=== PATIENT | female | born 1985 | race Caucasian/White ===

== ENCOUNTER 2019-03-27 20:19 | Emergency (ER) | payer OTHER ==
--- NOTE | 2019-03-27 21:31 | EDM.PDOC ---
ED HPI GENERAL MEDICAL PROBLEM - General Chief Complaint: Chest Pain Stated Complaint: CHEST PAIN LEFT SIDE HAD BABY ON FRIDAY Time Seen by Provider: 03/27/19 21:04 Source of Information: Reports: Patient, RN Notes Reviewed History Limitations: Reports: No Limitations - History of Present Illness INITIAL COMMENTS - FREE TEXT/NARRATIVE: Patient is a 34-year-old female who presents to the ED for the evaluation of left-sided chest pain. The patient notes that she did just give to a healthy baby girl this last Friday. So she would be 6 days from her . The patient notes last night however she developed some sharp chest pain that made her awaken from sleep. These have been intermittent, and she states that when she sits upright, the pain feels better. She notes she does get a little bit of shortness of breath with the pain episodes. She notes that the pain does worsen when she takes a deep breath as well. She would describe the pain as a sharp, stabbing pain in nature. She denies any nausea/vomiting/ diarrhea. The patient notes that she is breast-feeding, but she has not noticed any redness, swelling, or tenderness to the breast tissue itself, she states that the pain feels deeper than her breast tissue. She notes that she has been prescribed 800 mg ibuprofen every 8 hours for pain relief due to the , but states she has not been taking this every 8 hours, she is only doing it as needed. Patient further denies any sort of recent cold-like symptoms, or change in bras that she may have had. 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 Denies: Cough Cardiovascular: Reports: Chest Pain (Left chest pain). Denies: Dyspnea on Exertion, Lightheadedness, Palpitations, PND Endocrine: Reports: No Symptoms GI/Abdominal: Reports: No Symptoms : Reports: No Symptoms Musculoskeletal: Reports: No Symptoms Skin: Reports: No Symptoms Neurological: Reports: No Symptoms Psychiatric: Reports: No Symptoms Hematologic/Lymphatic: Reports: No Symptoms Immunologic: Reports: No Symptoms ED EXAM, GENERAL - Physical Exam Exam: See Below Exam Limited By: No Limitations General Appearance: Alert, WD/WN, No Apparent Distress Throat/Mouth: Normal Inspection, Normal Lips, Normal Teeth, Normal Gums, Normal Oropharynx, Normal Voice, No Airway Compromise Head: Atraumatic, Normocephalic Neck: Normal Inspection Respiratory/Chest: No Respiratory Distress, Lungs Clear, Normal Breath Sounds, No Accessory Muscle Use, Other (Palpation of the Left chest elicits reproducible pain over the 3-4th rib.) Cardiovascular: Normal Peripheral Pulses, Regular Rate, Rhythm, No Edema, No Murmur (Female) Exam: Other (Breast tissue appears normal on visual inspection, there is no redness, swelling or open sores noted no signs of mastitis or cellulitis.) Extremities: Normal Inspection, Normal Capillary Refill Neurological: Alert, Oriented, Normal Cognition, No Motor/Sensory Deficits Psychiatric: Normal Affect, Normal Mood Skin Exam: Warm, Dry, Intact, Normal Color, No Rash Course - Vital Signs Last Recorded V/S: Last Vital Signs Temp 98.3 F 03/27/19 20:29 Pulse 76 03/27/19 20:29 Resp 16 03/27/19 20:29 BP 124/86 03/27/19 20:29 Pulse Ox 97 03/27/19 20:29 - Orders/Labs/Meds Orders: Active Orders 24 hr Category Date Time Status Ang Chest [CT] Stat Exams 03/27/19 21:24 Taken Meds: Medications Discontinued Medications Generic Name Dose Route Start Last Admin Trade Name Freq PRN Reason Stop Dose Admin Sodium Chloride 100 mls @ 4 mls/sec 03/27/19 22:00 03/27/19 22:01 Normal Saline IV 4 mls/sec ASDIRECTED TIRSO Administration Iopamidol 100 ml 03/27/19 21:59 03/27/19 22:00 Isovue-370 (76%) IVPUSH 03/27/19 22:00 100 ml ONETIME ONE Administration Iopamidol 40 ml 03/27/19 21:59 03/27/19 22:00 Isovue-370 (76%) IVPUSH 03/27/19 22:00 40 ml ONETIME ONE Administration - Re-Assessments/Exams Free Text/Narrative Re-Assessment/Exam: 03/27/19 21:31 Patient presents to the ED for evaluation of left-sided chest pain. Due to her being 6 days from , I did discuss the case with Dr. Corbin , and he suggests doing a CT angiogram to rule out a pulmonary embolus. He states that a d-dimer could be obtained but likely would be skewed due to her recent delivery and . At this time I did discuss the benefit risk ratio with the patient, she is in agreement and would take the chest CT to rule out a PE at this time. 03/27/19 22:22 CT angio chest is done, and demonstrates no pulmonary embolus. There were findings of a few pulmonary nodules measuring up to 5 mm in diameter. It appears that Fleischner criteria for multiple solid nodules in low risk patients , with nodules less than 6 mm, there is no follow-up needed. I will relay this to the patient. Patient will be discharged home with general recommendations and treated as costochondritis at this time. Departure - Departure Time of Disposition: 22:23 Disposition: Home, Self-Care 01 Condition: Fair Clinical Impression: Costochondral chest pain Instructions: Chest Wall Pain, [id number] Referrals: PCP,None [Primary Care Provider] - Forms: ED Department Discharge Additional Instructions: You were evaluated in the ER today regarding your left-sided chest pain. Due to your recent and delivery, a chest CT with contrast was obtained to rule out a pulmonary embolus (blood clot in the lung), as increases your risk for blood clots. Your CT was negative for any sort of blood clot in your lung. There were several pulmonary nodules found measuring up to 5 mm. Current guidelines mandate that in low risk patients like yourself , any nodules less than 6 mm in size, do not warrant any follow-up. Your pain is most likely due to costochondral inflammation, this is an inflammation of the rib lining in your chest. Treatment for this is NSAID therapy, please continue to take the 800 mg of ibuprofen every 8 hours. Please return to the ER at anytime if your symptoms change or worsen. - My Orders Last 24 Hours: My Active Orders 03/27/19 21:24 Ang Chest [CT] Stat - Assessment/Plan Last 24 Hours: My Active Orders 03/27/19 21:24 Ang Chest [CT] Stat
[2019-03-27] MEDS ORDERED: Iopamidol 755 MG/ML 50 ML Bottle IVPUSH ONE (21:59)
[2019-03-27] MEDS ORDERED: Iopamidol 755 Mg/ML 100 ML Bottle IVPUSH ONE (21:59)
[2019-03-27] MEDS ORDERED: Sodium Chloride 0.9% 100 ML IV SCH (22:00)
--- NOTE | 2019-03-29 09:46 | CT ---
CT chest protocol. Technique: Multiple axial sections through the chest were obtained. Intravenous contrast was utilized. Findings: No axillary adenopathy is seen. Mediastinum and hilar regions show no adenopathy or mass. No pericardial thickening is seen. No filling defects are seen within the pulmonary arteries to indicate pulmonary emboli. No thoracic aortic aneurysm is seen. Visualized upper abdominal structures show no discrete abnormality. Lungs are clear with no acute parenchymal change. Small subpleural nodule is noted within the right middle lobe measuring about 5 mm. No additional nodule is seen. No acute parenchymal change is appreciated. Bone window settings were reviewed which showed no acute osseous finding. Impression: 1. Small 5 mm nodule within the right lung base. If patient is a smoker, recommend repeat study in 1 year. If patient is not a smoker, this can be ignored. 2. No findings of pulmonary embolism. 3. No acute parenchymal change is seen within either lung. Diagnostic code #3 This report was dictated in [place] Standard Time I agree with preliminary report issued by [facility] ([facility] report finalized on 03/27/19, 11:13 PM Central Time)
== END 2019-03-27 22:31 | disposition home or self-care (01) ==
LOC: JD.ED 20:19
DX: R07.1 Chest pain on breathing (principal)
CPT/HCPCS: 71275; 99285; J7030; Q9967; 99283

== ENCOUNTER 2022-06-10 19:15 | Inpatient (IN) | payer OTHER ==
[2022-06-10] MEDS ORDERED: Sodium Chloride 0.9% 10 ML Syringe FLUSH PRN (19:43)
[2022-06-10] MEDS ORDERED: Nalbuphine 10 MG/0.5 ML Syringe IVPUSH PRN (19:43)
[2022-06-10] MEDS ORDERED: Oxytocin/Lactated Ringers 10 UNIT/1,000 ML BAG IV SCH (19:45)
[2022-06-10] MEDS ORDERED: Lactated Ringers 1,000 ML IV SCH (19:45)
[2022-06-10] MEDS ORDERED: Lidocaine 1% 50 ML MDV ONE (20:12)
[2022-06-10] MEDS ORDERED: Lidocaine 1% 20 ML MDV INJECT ONE (20:16)
[2022-06-10] MEDS ORDERED: Sodium Chloride 0.9% 10 ML Syringe FLUSH SCH (21:00)
[2022-06-10] MEDS ORDERED: Benzocaine/Menthol 20%-0.5% Spray 78 GM Cannister TOP PRN (21:38)
[2022-06-10] MEDS ORDERED: Witch Hazel Medicated Pads 40/Jar TOP PRN (21:38)
[2022-06-10] MEDS: Acetaminophen 325 MG Tab PO PRN (21:55)
[2022-06-10] MEDS: Ibuprofen 600 MG Tab PO PRN (21:56)
[2022-06-10] MEDS: Docusate Sodium 100 MG Cap PO PRN (21:56)
[2022-06-11] MEDS: Acetaminophen 325 MG Tab PO PRN ×2 (03:46→20:31)
[2022-06-11] MEDS: Ibuprofen 600 MG Tab PO PRN ×3 (03:47→18:50)
[2022-06-11] MEDS: Docusate Sodium 100 MG Cap PO PRN (20:31)
[2022-06-12] MEDS: Ibuprofen 600 MG Tab PO PRN (03:37)
== END 2022-06-12 12:00 | disposition home or self-care (01) | DRG 807 ==
LOC: JD.OBCHECK 19:15 → JD.OB 19:18 → JD.OBCHECK 19:43 → OBSVTOIN 20:10 → JD.OB 20:11
PROVIDERS: ADMIT Obstetrics & Gynecology; ATTEND Obstetrics & Gynecology
PROC: 10E0XZZ Delivery of Products of Conception, External Approach (ICD-10-PCS; principal; 2022-06-10)
PROC: 0KQM0ZZ Repair Perineum Muscle, Open Approach (ICD-10-PCS; 2022-06-10)
DX: O77.0 Labor and delivery complicated by meconium in amniotic fluid (principal); Z37.0 Single live birth; Z3A.39 39 weeks gestation of pregnancy; O70.1 Second degree perineal laceration during delivery; O69.81X0 Labor and delivery complicated by cord around neck, without compression, not applicable or unspecified
CPT/HCPCS: 36415; 59025; 59409; 85025; 86592; A9270-GY; J2001; J2590

== ENCOUNTER 2024-06-03 15:01 | Emergency (ER) | payer BC, OTHER ==
[2024-06-03] MEDS ORDERED: Sodium Chloride 0.9% 10 ML Syringe FLUSH PRN (15:23)
[2024-06-03 15:28] LABS: BASOPHILS PERCENT AUTO 0.4 % (0.0-1.0); EOSINOPHILS ABSOLUTE AUTO 0.1 K/mm3 (0.0-0.4); EOSINOPHILS PERCENT AUTO 0.8 % (0.0-6.0); HEMATOCRIT 45.3 % (37.0-47.0); HEMOGLOBIN 15.2 gm/dl (12.0-16.0); IMMATURE GRAN ABSOLUTE AUTO 0.02 K/mm3 (0.00-0.05); IMMATURE GRAN PERCENT AUTO 0.3 % (0.0-0.4); LYMPHOCYTES ABSOLUTE AUTO 1.9 K/mm3 (1.0-4.8); LYMPHOCYTES PERCENT AUTO 24.9 % (24.0-44.0); MEAN CORPUSCULAR HEMOGLOBIN 29.9 pg (28.0-32.0); MEAN CORPUSCULAR HGB CONC 33.6 g/dl (32.0-36.0); MEAN PLATELET VOLUME 9.4 fl (9.4-12.3); MONOCYTES ABSOLUTE AUTO 0.5 K/mm3 (0.0-0.8); MONOCYTES PERCENT AUTO 6.6 % (0.0-8.0); NEUTROPHILS ABSOLUTE AUTO 5.1 K/mm3 (1.8-7.7); PLATELET COUNT,PLT 298 K/mm3 (150-400); RED BLOOD CELL COUNT 5.09 M/mm3 (4.10-5.30)
[2024-06-03 15:44] LABS: A/G RATIO 0.9 (1-2); ALBUMIN 3.8 g/dl (3.4-5.0); ANION GAP 12.7 (5-15); BILIRUBIN TOTAL 0.3 mg/dL (0.2-1.0); BUN/CREATININE RATIO 18.3 (14-18); CALCIUM 8.9 mg/dL (8.5-10.1); CREATININE 0.6 mg/dL (0.55-1.02); EST CRCL DRUG DOSING (CG) 113.27 mL/min; POTASSIUM,K 3.7 mEq/L (3.5-5.1); PROTEIN TOTAL,TP 7.9 g/dl (6.4-8.2)
[2024-06-03] MEDS: Famotidine 20 MG Tab PO ONE (16:02)
[2024-06-03] MEDS: Alum Hydrox/Mag Hydrox/Simeth 30 ML, Lidocaine 2% 15 ML PO ONE (16:02)
== END 2024-06-03 19:15 | disposition home or self-care (01) ==
LOC: JD.ED 15:01
DX: R07.89 Other chest pain (principal); Z86.16 Personal history of COVID-19; Z90.49 Acquired absence of other specified parts of digestive tract; Z88.1 Allergy status to other antibiotic agents
CPT/HCPCS: 36415; 71045; 80053; 83690; 84484; 84703; 85025; 93005; 99285; A9270